=== PATIENT | female | born 1970 | race Two or more races ===

== ENCOUNTER 2019-09-15 12:29 | Inpatient (IN) | payer OTHER ==
[2019-09-15] MEDS ORDERED: morphine CARPU-JECT 4 MG/1 ML DISP.SYRIN IVPUSH ONE (12:59)
[2019-09-15] MEDS ORDERED: ONDANSETRON 4 MG/2 ML VIAL IVPUSH ONE (13:00)
[2019-09-15] MEDS ORDERED: LACTATED RINGERS SOLUTION 1000 ML INFUS.BAG IV ONE (13:00)
--- NOTE | 2019-09-15 13:01 | PDOC ---
History of Present Illness - General Chief Complaint: Pain Stated Complaint: ABD PAIN Time Seen by Provider: 09/15/19 12:31 History Source: Patient, Family (Daughter present at bedside.), Pt declined Machine Set Up Technician (Requested daughter provide interpretation) Exam Limitations: Language Barrier (Telugu speaking only) - History of Present Illness Initial Comments: HPI: 49 y/o female presenting to [place] ER complaining of atraumatic bilateral lower back, bilateral flank, and lower abdominal pain with nausea x2 days. Symptoms started last night with left lower back vs left flank pain and progressively worsened. Endorsed nausea without vomiting. Denies diarrhea, hematuria, dysuria, or increased urinary frequency. No change in pain with voiding. Last BM this morning; described as normal and nonbloody. No h/o similar pain or nephrolithiasis. Endorsed h/o ovarian cyst several years ago. Stopped menstrating in her 30s. Of note, the pt was initially evaluated at and referred to ED for further evaluation. Results scanned into [facility]. Medical Hx: - HTN Surgical Hx: - - Unknown type for ovarian cyst several years ago in the [place] Review of Systems: In addition to that documented in the HPI above, the additional ROS was obtained : Constitutional- Denies diaphoresis, fevers, or chills Head- Denies vision changes ENMT- Denies sore throat CV- Denies chest pain Resp- Denies SOB GI- Denies vomiting or diarrhea - Denies painful urination MSK- Denies recent trauma Skin- Denies new rashes Neuro- Denies new numbness or tingling or weakness Endocrine- Denies polyuria Heme- Denies bleeding or bruising Physical Examination: Vital signs and nursing notes reviewed. Constitutional- Well-developed, well-nourished adult female in no acute distress but obvious discomfort. Found in left lateral recumbent position on hospital bed. Head- Normocephalic. No obvious external signs of trauma. Cardiovascular / Chest- Regular rate and regular rhythm. No murmur, rubs, clicks , or gallops. Peripheral pulses- radial pulses full. Respiratory- Breathing unlabored. Equal chest rise and fall. Clear to auscultation bilaterally. No stridor, no wheezing, no rhonchi. Gastrointestinal- lower abdomen is diffusely tender with minimal guarding in RLQ. Positive Roseving's sign. Pain made worse by transitioning to semi-smith' s position and sitting upright. Globally, abdomen is soft and nondistended. No pulsatile masses. No overlying skin lesions or obvious signs of trauma. Midline post surgical scar below umbilicus. Neuro- Alert and oriented x4. Moving all four extremities spontaneously. Skin- Warm, dry, and intact. No bruising, rashes, or other lesions. MSK- Diffuse R and L lower back tenderness. No midline tenderness or overlying skin changes. No signs of trauma. - L CVA tenderness. Psych- Affect- appropriate. Mood- normal. Speech was non-labored, non- pressured. MDM: 49 y/o female presenting with worsening flank and lower abdominal pain w/ nausea x2 days. Afebrile. Vitals unremarkable for hypotension or tachycardia. Physical exam as described above. Ordered Morphine, Zofran, and IVFB. Concern for acute appendicitis given physical exam findings. Low suspicion for pyelonephritis given UA results. Noted hematuria, but low suspicion for nephrolithiasis given bilateral nature of pain and abdominal findings. Reviewed CTAP results. Possible early appendicitis. Will discuss with Dr. Cabrera. 15 Sep 2019 15:04 PM Pt reassessed. Reports pain has improved. Repeat abdominal exam again revealed rebound tenderness in the RLQ and referred pain from LLQ. Afebrile measured rectally. 15 Sep 2019 17:08 PM Telephone discussion with Dr. Cabrera. Verbally appraised of the pts HPI, ED course, and current plan of management. Will review the CT scan. Anticipate possible observation. Requested no further narcotic administration or abx administration. States she would be unable to perform emergent or urgent surgery at [facility]. 15 Sep 2019 17:43 PM Telephone discussion with Dr. Deluca, ED Attending at [facility]. Verbally appraised of the pts HPI, ED course, and current plan of management. Will accept the pt as an ED to ED transfer for surgical evaluation and likely admission. Discussed plan to transfer to [facility] ED for further evaluation with pt and pts daughter. Both expressed verbal understanding and agreement with plan. Pre-op labs and EKG ordered. Masoud Calvert M.D., PGY2 Emergency Medicine Resident Past History - Past Medical History Allergies/Adverse Reactions: Allergies Allergy/AdvReac Type Severity Reaction Status Date / Time No Known Allergies Allergy Verified 03/01/20 12:30 Home Medications: Ambulatory Orders Loratadine [Claritin] 10 mg PO DAILY 09/15/19 Losartan Potassium 50 mg PO DAILY 09/15/19 COPD: No HTN: Yes - Psycho Social/Smoking Cessation Hx Smoking History: Never smoked Have you smoked in the past 12 months: No Information on smoking cessation initiated: No Hx Alcohol Use: No Drug/Substance Use Hx: No *Physical Exam - Vital Signs Last Vital Signs Temp Pulse Resp BP Pulse Ox 98.5 F 68 20 139/87 99 09/15/19 12:30 09/15/19 12:30 09/15/19 12:30 09/15/19 12:30 09/15/19 12:30 ED Treatment Course - LABORATORY CBC & Chemistry Diagram: 09/15/19 13:23 09/15/19 13:14 - ADDITIONAL ORDERS Additional order review: Laboratory Results 09/15/19 12:53 Urine Color Yellow Urine Appearance Clear Urine pH 5.5 Urine Protein Negative Urine Glucose (UA) Negative Urine Ketones Negative Urine Blood 1+ H Urine Nitrite Negative Urine Bilirubin Negative Urine Urobilinogen 0.2 Ur Leukocyte Esterase Negative - RADIOLOGY Radiology Studies Ordered: Category Date Time Status ABDOMEN & PELVIS CT WITH CONTR [CT] Stat CT Scan 09/15/19 12:58 Ordered Discharge - Discharge Information Problems reviewed: Yes Clinical Impression/Diagnosis: Nausea alone Abdominal pain Qualifiers: Abdominal location: right lower quadrant Qualified Code(s): R10.31 - Right lower quadrant pain Condition: Stable Disposition: TRANSFER ACUTE CARE/OTHER HOSP - Follow up/Referral - Patient Discharge Instructions - Post Discharge Activity - Transfer to Acute Care Facility Transfer Comment: Pt transferred to [facility] for general surgical evaluation.
[2019-09-15 13:09] LABS: EPITHELIAL CELLS FEW /hpf
--- NOTE | 2019-09-15 13:09 | PDOC ---
Attending Attestation - Resident Resident Name: Masoud Calvert - ED Attending Attestation I have performed the following: I have examined & evaluated the patient, The case was reviewed & discussed with the resident, I agree w/resident's findings & plan - HPI HPI: 09/15/19 13:04 49 y/o female with left flank pain now radiating to RLQ that started yesterday. Was seen at [facility] today and has blood in urine, sent to ER for further evaluation of possible kidney stone. Denies, fever chills, dysuria fall or trauma. Has not taken anything for the pain. Pain getting worse, even with movement. No N/V/d/C. Pt states to have had this pain 2 weeks ago, but went away. 09/15/19 15:02 - Physicial Exam PE: 09/15/19 13:06 VSS stable HEENT : unremarkable Heart: RRR w/o murmur Lungs: CTA b/l, no wheezes, no CVA tenderness b/l Abdomen: soft +BS, tender to RLQ and LLQ, no RUQ or LUQ, no abdominal pulsatile masses noted, +Rovsing sign Ext: no C/C/e Neuro: grossly intact 09/15/19 15:27 - Medical Decision Making 09/15/19 13:07 49 y/o female with hematuria and RLQ, will obtain labs and CT abd/pelvis Pt is in agreement with plan IVF and pain meds 09/15/19 17:43 CT abdomen: possible early appendicitis Dr. Hsu Surgeon will see pt wants patient transferred to [facility] Dr. Deluca in ER accepted transfer Final Dx: RLQ pain cannot r/o appendicitis Further orders as per attending, wants fluids only, no antibiotics Case reviewed and discussed with Dr. Calvert
[2019-09-15] MEDS ORDERED: morphine SULFATE 4 MG/ML VIAL ONE (13:29)
[2019-09-15] MEDS ORDERED: ONDANSETRON 4 MG/2 ML VIAL ONE (13:29)
[2019-09-15 13:45] LABS: ALBUMIN 4.3 g/dl (3.4-5.0); BILIRUBIN,TOTAL 0.7 mg/dl (0.2-1); CALCIUM 9.3 mg/dl (8.5-10); CREATININE 0.7 mg/dl (0.55-1.3); POTASSIUM 4.1 mmol/L (3.5-5.1); TOT PROT 7.7 g/dl (6.4-8.2)
[2019-09-15 14:10] LABS: BASO % 0.6 % (0-2.0); HEMOGLOBIN 12.8 GM/dL (10.7-15.3); LYMPH % 47.4 % (8-40); MCHC 32.8 g/dl (32.0-36.0); MEAN CELL VOLUME 82.4 fl (80-96); MEAN PLT VOLUME 9.9 fl (7.5-11.1); MONO % 5.9 % (3.8-10.2); NEUT % 42.1 % (42.8-82.8); PLATELET COUNT 260 K/MM3 (134-434); RBC 4.73 M/mm3 (3.60-5.2); RDW 15.2 % (11.6-15.6); WHITE BLOOD COUNT 6.6 K/mm3 (4.0-10.0)
[2019-09-15] MEDS ORDERED: LACTATED RINGERS SOLUTION 1,000 ML/1,000 ML INFUS.BAG IV SCH ×2 (17:15→20:30)
[2019-09-15 18:37] LABS: INR 1.13 (0.82-1.09); PROTHROMBIN TIME (PATIENT) 12.6 SEC (10.2-13.0)
--- NOTE | 2019-09-15 19:30 | PDOC ---
*Physical Exam - Vital Signs Last Vital Signs Temp Pulse Resp BP Pulse Ox 97.4 F L 76 16 140/77 98 09/15/19 19:15 09/15/19 19:15 09/15/19 19:15 09/15/19 19:15 09/15/19 19:15 ED Treatment Course - LABORATORY CBC & Chemistry Diagram: 09/16/19 06:26 09/16/19 06:26 - ADDITIONAL ORDERS Additional order review: Laboratory Results 09/15/19 09/15/19 09/15/19 18:24 13:23 13:14 PT with INR 12.6 INR 1.13 PTT (Actin FS) 30.0 Sodium 138 Potassium 4.1 Chloride 106 Carbon Dioxide 24 Anion Gap 8 BUN 13.0 Creatinine 0.7 Est GFR (CKD-EPI)AfAm 117.91 Est GFR (CKD-EPI)NonAf 101.74 Random Glucose 93 Calcium 9.3 Total Bilirubin 0.7 AST 16 ALT 12 L Alkaline Phosphatase 55 Total Protein 7.7 Albumin 4.3 Lipase 158 Urine Color Urine Appearance Urine pH Urine Protein Urine Glucose (UA) Urine Ketones Urine Blood Urine Nitrite Urine Bilirubin Urine Urobilinogen Ur Leukocyte Esterase Urine RBC Urine WBC Ur Transition Epith Cell Urine HCG, Qual 09/15/19 09/15/19 12:53 12:53 PT with INR INR PTT (Actin FS) Sodium Potassium Chloride Carbon Dioxide Anion Gap BUN Creatinine Est GFR (CKD-EPI)AfAm Est GFR (CKD-EPI)NonAf Random Glucose Calcium Total Bilirubin AST ALT Alkaline Phosphatase Total Protein Albumin Lipase Urine Color Yellow Urine Appearance Clear Urine pH 5.5 Urine Protein Negative Urine Glucose (UA) Negative Urine Ketones Negative Urine Blood 1+ H Urine Nitrite Negative Urine Bilirubin Negative Urine Urobilinogen 0.2 Ur Leukocyte Esterase Negative Urine RBC 2-5 Urine WBC 0-2 Ur Transition Epith Cell Few Urine HCG, Qual Negative 09/15/19 13:23 RBC 4.73 MCV 82.4 MCHC 32.8 RDW 15.2 MPV 9.9 Neutrophils % 42.1 L Lymphocytes % 47.4 H Monocytes % 5.9 Eosinophils % 4.0 Basophils % 0.6 - Medications Given in the ED: ED Medications Discontinued Medications Generic Name Dose Route Start Last Admin Trade Name Freq PRN Reason Stop Dose Admin Lactated Ringer's 1,000 ml 09/15/19 13:00 09/15/19 13:36 Lactated Ringers Solution IV 09/15/19 13:01 1,000 ml ONCE ONE Administration Morphine Sulfate 4 mg 09/15/19 12:59 09/15/19 13:36 Morphine Injection - IVPUSH 09/15/19 13:00 4 mg ONCE ONE Administration Ondansetron HCl 4 mg 09/15/19 13:00 09/15/19 13:36 Zofran Injection IVPUSH 09/15/19 13:01 4 mg ONCE ONE Administration Medical Decision Making - Medical Decision Making 09/15/19 19:24 Patient transferred from [facility] for further evaluation. Patient is a 49 yo female w/ pmh of HTN who presents for evaluation of back/flank pain progr essed to abdominal pain. Evaluation already today includes CT abd/pelvis which revealed possible early appendicitis. Patient transferred for surgical evaluation. ROS: GENERAL/CONSTITUTIONAL: No fever or chills. No weakness. HEAD, EYES, EARS, NOSE AND THROAT: No change in vision. No ear pain or dis charge. No sore throat. CARDIOVASCULAR: No chest pain or shortness of breath RESPIRATORY: No cough, wheezing, or hemoptysis. GASTROINTESTINAL: +Abdominal/flank pain as reported. No nausea, vomiting, d iarrhea or constipation. GENITOURINARY: No dysuria, frequency, or change in urination. MUSCULOSKELETAL: No joint or muscle swelling or pain. No neck or back pain. SKIN: No rash NEUROLOGIC: No headache, vertigo, loss of consciousness, or change in strength/sensation. ENDOCRINE: No increased thirst. No abnormal weight change HEMATOLOGIC/LYMPHATIC: No anemia, easy bleeding, or history of blood clots. ALLERGIC/IMMUNOLOGIC: No hives or skin allergy. PE: GENERAL: Awake, alert, and fully oriented, in no acute distress HEAD: No signs of trauma, normocephalic, atraumatic EYES: PERRLA, EOMI, sclera anicteric, conjunctiva clear ENT: Auricles normal inspection, hearing grossly normal, nares patent, nata pharynx clear without exudates. Moist mucosa NECK: Normal ROM, supple, no lymphadenopathy, JVD, or masses LUNGS: No distress, speaks full sentences, clear to auscultation bilaterally HEART: Regular rate and rhythm, normal S1 and S2, no murmurs, rubs or gallops, peripheral pulses normal and equal bilaterally. ABDOMEN: +BRIANNA exquisite lower abdominal TTP. EXTREMITIES: Normal inspection, Normal range of motion, no edema. No clubbing or cyanosis. NEUROLOGICAL: Cranial nerves II through XII grossly intact. Normal speech, normal gait, no focal sensorimotor deficits SKIN: Warm, Dry, normal turgor, no rashes or lesions noted. Patient currently pending surgical evaluation. Will monitor for clinical changes and provide analgesia prn. Patient otherwise well appearing at this time. 09/15/19 20:21 Discussed patient w/ surgery who requested no ABX or narcotics to ensure ap propriate exams. Will admit for serial abdominal exams and morning repeat labs. Discharge - Discharge Information Problems reviewed: Yes Clinical Impression/Diagnosis: Abdominal pain Qualifiers: Abdominal location: right lower quadrant Qualified Code(s): R10.31 - Right lower quadrant pain Condition: Fair Disposition: HOME - Admission Yes - Follow up/Referral - Patient Discharge Instructions - Post Discharge Activity
[2019-09-15] MEDS ORDERED: DEXAMETHASONE SOD PHOSPHATE 10 MG/1 ML VIAL ONE (21:19)
[2019-09-15] MEDS ORDERED: ONDANSETRON 4 MG/2 ML VIAL IVPUSH PRN (21:49)
[2019-09-15] MEDS ORDERED: ACETAMINOPHEN 1000 MG/100 ML VIAL (NON FORMULARY) IVPB PRN (21:50)
[2019-09-15] MEDS ORDERED: ACETAMINOPHEN INJECTION 100 ML IVPB ONE (22:42)
--- NOTE | 2019-09-15 22:52 | CONSULT ---
Consult Consult Specialty:: General Surgery Referred by:: Guillaume Calvert Reason for Consultation:: possible early appendicitis - History of Present Illness Chief Complaint: R flank pain, BLQ pain L>R, also L flank pain, mild nausea History of Present Illness: 49yo Win F with HTN, s/p hysterectomy and subsequent oophorectomy ( adherent to intestines), presented to [facility] ER with R flank pain radiating around to pelvis and groin, also to left side and around to left flank, associated with some nausea but no vomiting. She had normal BM this morning, no fever or chills, though her abdomen felt "hot." The pain has been persistent and severe, greater with ambulation. She had a similar pain but not nearly as bad a week or two ago, but it went away on its own. She had beef soup and white rice for lunch yesterday, and the pain started around 6pm, and she did not have dinner. She did have tea later last night, and coffee with bread this morning. She denies h/o kidney stones, hematuria, or dysuria. At [facility] ER, she had wbc 6.6, was afebrile, labs normal, UA showed 1+ blood, 2- 5 RBC, 0-2 WBC, otherwise negative, and culture is pending. CT with IV but no PO contrast showed no acute findings except possible dilation of appendiceal tip on sagittal views. Surgery was asked to assess, and she was transferred to [facility] ER, as there would be no OR staff available at [facility] over the weekend. She is seen and examined in ER, just after ambulating to bathroom to urinate. Her daughter helped with Guyanese at bedside. She stated she feels a little better, but is still in pain, more LLQ than RLQ, but also on flanks. It hurts to walk and to turn/move on the stretcher. She related the above history. - History Source History Provided By: Patient, Family Member (daughter) Limitations to Obtaining History: Language Barrier (Guyanese - daughter assisted at pt's request) - Past Medical History Cardio/Vascular: Yes: HTN ...: No - Past Surgical History Past Surgical History: Yes: Hysterectomy, Oopherectomy (one side, secondary to intestinal adhesions/ovarian cyst) Additional Surgical History: laparotomy - thought ovarian cyst, found adhesions to intestines, took ovary (in [place] 6 yrs ago) - Alcohol/Substance Use Hx Alcohol Use: Yes (social) History of Substance Use: reports: None - Smoking History Smoking history: Former smoker Have you smoked in the past 12 months: No If you are a former smoker, when did you quit?: 16 yrs ago - Social History ADL: Independent Home Medications - Allergies Allergies/Adverse Reactions: Allergies Allergy/AdvReac Type Severity Reaction Status Date / Time No Known Allergies Allergy Verified 09/15/19 12:30 - Home Medications Home Medications: Ambulatory Orders Loratadine [Claritin] 10 mg PO DAILY 09/15/19 Losartan Potassium 50 mg PO DAILY 09/15/19 Family Medical History Family History: Unremarkable (noncontributory) Review of Systems - Review of Systems Constitutional: denies: Chills, Fever, Loss of Appetite Eyes: reports: Other (glasses for reading). denies: Recent Change in Vision HENT: denies: Difficult Swallowing, Throat Pain Neck: denies: Swollen Glands, Tenderness Cardiovascular: denies: Chest Pain, Palpitations Respiratory: denies: Cough, SOB Gastrointestinal: reports: Abdominal Pain (with hpi), Nausea (with hpi). denies : Constipation, Diarrhea, Vomiting Genitourinary: denies: Burning, Dysuria Musculoskeletal: reports: Back Pain (with hpi). denies: Joint Pain, Muscle Pain Integumentary: denies: Change in Color, Rash Neurological: denies: Dizziness, Headache Physical Exam Vital Signs: Vital Signs Temperature 97.8 F 09/15/19 20:48 Pulse Rate 61 09/15/19 22:06 Respiratory Rate 18 09/15/19 22:06 Blood Pressure 132/88 09/15/19 22:06 O2 Sat by Pulse Oximetry (%) 100 09/15/19 22:06 Constitutional: Yes: Well Nourished, Calm, Mild Distress (in pain with ambulation and moving on stretcher) Eyes: Yes: Conjunctiva Clear, EOM Intact HENT: Yes: Atraumatic, Normocephalic Neck: Yes: Supple, Trachea Midline Cardiovascular: Yes: Regular Rate and Rhythm Respiratory: Yes: Regular, CTA Bilaterally Gastrointestinal: Yes: Normal Bowel Sounds, Soft, Tenderness (LLQ >= suprapubic > RLQ; also some tenderness right lateral abd/side just above iliac crest), Other (well-healed Pfannenstiel and lower midline scars). No: Distention, Hernia, Tenderness, Epigastrium, Tenderness, Rebound ...Rectal Exam: Yes: Deferred Renal/: No: CVA Tenderness - Left, CVA Tenderness - Right Musculoskeletal: No: Joint Stiffness, Joint Swelling Extremities: No: Cool, Cyanosis Edema: No Peripheral Pulses WNL: Yes Integumentary: No: Jaundice, Rash Neurological: Yes: Alert, Oriented Psychiatric: Yes: Alert, Oriented Labs: CBC, BMP 09/15/19 13:23 09/15/19 13:14 CMP Sodium 138 mmol/L (136-145) 09/15/19 13:14 Potassium 4.1 mmol/L (3.5-5.1) 09/15/19 13:14 Chloride 106 mmol/L (98-107) 09/15/19 13:14 Carbon Dioxide 24 mmol/L (21-32) 09/15/19 13:14 Anion Gap 8 MMOL/L (8-16) 09/15/19 13:14 BUN 13.0 mg/dl (7-18) 09/15/19 13:14 Creatinine 0.7 mg/dl (0.55-1.3) 09/15/19 13:14 Est GFR (CKD-EPI)AfAm 117.91 09/15/19 13:14 Est GFR (CKD-EPI)NonAf 101.74 09/15/19 13:14 Random Glucose 93 mg/dl (74-106) 09/15/19 13:14 Calcium 9.3 mg/dl (8.5-10) 09/15/19 13:14 Total Bilirubin 0.7 mg/dl (0.2-1) 09/15/19 13:14 AST 16 U/L (15-37) 09/15/19 13:14 ALT 12 U/L (13-61) L 09/15/19 13:14 Alkaline Phosphatase 55 U/L (45-117) 09/15/19 13:14 Total Protein 7.7 g/dl (6.4-8.2) 09/15/19 13:14 Albumin 4.3 g/dl (3.4-5.0) 09/15/19 13:14 Lipase 158 U/L (73-393) 09/15/19 13:23 INR, PTT INR 1.13 (0.82-1.09) 09/15/19 18:24 Urine Test Results Urine Color Yellow 09/15/19 12:53 Urine Appearance Clear 09/15/19 12:53 Urine pH 5.5 (4.5-8) 09/15/19 12:53 Urine Protein Negative (NEGATIVE) 09/15/19 12:53 Urine Glucose (UA) Negative (NEGATIVE) 09/15/19 12:53 Urine Ketones Negative (NEGATIVE) 09/15/19 12:53 Urine Blood 1+ (NEGATIVE) H 09/15/19 12:53 Urine Nitrite Negative (NEGATIVE) 09/15/19 12:53 Urine Bilirubin Negative (NEGATIVE) 09/15/19 12:53 Ur Leukocyte Esterase Negative (NEGATIVE) 09/15/19 12:53 Urine RBC 2-5 /hpf (0-4) 09/15/19 12:53 Urine WBC 0-2 (NEGATIVE) 09/15/19 12:53 Imaging - Results Cat Scan: Report Reviewed, Image Reviewed (absent uterus, no free fluid or air, appendix without inflammatory changes but possible dilation of tip on sagittal views only, no obstruction, no oral contrast given, + multiple punctate hyperdensities in pelvis and near bladder - ? stones vs phleboliths?) Problem List - Problems (1) Abdominal pain, bilateral lower quadrant Code(s): R10.31 - RIGHT LOWER QUADRANT PAIN; R10.32 - LEFT LOWER QUADRANT PAIN (2) Nausea alone Code(s): R11.0 - NAUSEA (3) LLQ abdominal tenderness Code(s): R10.814 - LEFT LOWER QUADRANT ABDOMINAL TENDERNESS Qualifiers: Presence of rebound: absent Qualified Code(s): R10.814 - Left lower quadrant abdominal tenderness (4) Hypertension Code(s): I10 - ESSENTIAL (PRIMARY) HYPERTENSION Qualifiers: Hypertension type: essential hypertension Qualified Code(s): I10 - Essential (primary) hypertension Assessment/Plan patient initially with right flank pain radiating toward pelvis/groin and across to left side now with mostly LLQ pain/tenderness, also suprapubic tenderness appendicitis unlikely, but source of pain unclear admitted to medicine for now NO narcotics NO antibiotics serial exams trend labs in am IV tylenol ok, home BP med with sips water ok in am NPO/IVF GI/DVT prophylaxis will f/u in am seen and discussed with Kimberlee Reyes DREDGE OPERATOR
--- NOTE | 2019-09-16 00:04 | HP ---
Admitting History and Physical - Primary Care Physician PCP: Hanna Martins - Admission Chief Complaint: Abdominal/Pelvic Pain, Flank Pain, Nausea History of Present Illness: This is a 49 y/o female with a PMHx of HTN, Ovarian Cyst. Who presents to the ED from [facility] with bilateral flank and generalized abdominal pain with nausea x 2 days. Patient is [place] Citizen speaking requests her daughter translate on her behalf, declined [employer] language line services. Per the daughter, the pain to the abdomen and bilateral flanks began after the patient lifted a 40" TV, while organizing her room. The patient describes the pain as "sharp, squeezing" and constant, radiating from lower abdomen LLQ > RLQ to bilateral flanks, worse with movement. Patient reports eating food earlier in the day without incident. Last BM was today brown-soft. Patient reports having malodorous urine x 1 week, without dysuria. Patient denies vaginal discharge or being sexually active. Per the daughter, the patient had a Hysterectomy with oophrectomy. Patient denies fever, chills, cough, dizziness, ZHU, vomiting, constipation. History Source: Patient, Family Member Limitations to Obtaining History: Language Barrier (Spain[place] speaking) - Past Medical History Cardiovascular: Yes: HTN Reproductive: Yes: Postmenopausal ...LMP Comment: age 32 ...: No - Past Surgical History Past Surgical History: Yes: , Hysterectomy, Oopherectomy (one side, secondary to intestinal adhesions/ovarian cyst) - Smoking History Smoking history: Former smoker Have you smoked in the past 12 months: No If you are a former smoker, when did you quit?: 16 yrs ago - Alcohol/Substance Use Hx Alcohol Use: Yes (social) History of Substance Use: reports: None - Social History Usual Living Arrangement: Yes: With Child ADL: Independent 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 History of Recent Travel: No Home Medications - Allergies Allergies/Adverse Reactions: Allergies Allergy/AdvReac Type Severity Reaction Status Date / Time No Known Allergies Allergy Verified 09/15/19 12:30 - Home Medications Home Medications: Ambulatory Orders Loratadine [Claritin] 10 mg PO DAILY 09/15/19 Losartan Potassium 50 mg PO DAILY 09/15/19 Family Medical History Family History: Unremarkable Review of Systems - Review of Systems Constitutional: reports: No Symptoms Eyes: reports: No Symptoms HENT: reports: No Symptoms Neck: reports: No Symptoms Cardiovascular: reports: No Symptoms Respiratory: reports: No Symptoms Gastrointestinal: reports: Abdominal Pain, Nausea Genitourinary: reports: Flank Pain, Other (Malodorous Urine) Breasts: reports: No Symptoms Reported Musculoskeletal: reports: Back Pain Integumentary: reports: No Symptoms Neurological: reports: No Symptoms Endocrine: reports: No Symptoms Hematology/Lymphatic: reports: No Symptoms Psychiatric: reports: No Symptoms Pain Intensity: 9 Physical Examination Vital Signs: Vital Signs Temperature 97.8 F 09/15/19 20:48 Pulse Rate 61 09/15/19 22:06 Respiratory Rate 18 09/15/19 22:06 Blood Pressure 132/88 09/15/19 22:06 O2 Sat by Pulse Oximetry (%) 100 09/15/19 22:06 Constitutional: Yes: Moderate Distress Eyes: Yes: WNL, Conjunctiva Clear, EOM Intact, PERRL HENT: Yes: WNL, Atraumatic, Normocephalic Neck: Yes: WNL, Supple, Trachea Midline Cardiovascular: Yes: Regular Rate and Rhythm, S1, S2 Respiratory: Yes: WNL, Regular, CTA Bilaterally Gastrointestinal: Yes: Normal Bowel Sounds, Soft, Tenderness (LUQ, LMQ, LLQ) ...Rectal Exam: Yes: WNL Renal/: Yes: CVA Tenderness - Right, Other ( Bi Manual exam-tenderness to lower abdomen). No: Vaginal Discharge Breast(s): Yes: WNL Musculoskeletal: Yes: Back Pain Extremities: Yes: WNL Edema: No Peripheral Pulses WNL: Yes Integumentary: Yes: WNL, Incision Wound/Incision: Yes: Other (surgical scar well healed- midline) Neurological: Yes: WNL, Alert, Oriented, Cran Nerves II-XII Intact ...Motor Strength: WNL Psychiatric: Yes: WNL, Alert, Oriented Labs: CBC, BMP 09/15/19 13:23 09/15/19 13:14 Laboratory Results - last 24 hr 09/15/19 09/15/19 09/15/19 12:53 12:53 13:14 WBC RBC Hgb Hct MCV MCH MCHC RDW Plt Count MPV Absolute Neuts (auto) Neutrophils % Lymphocytes % Monocytes % Eosinophils % Basophils % Nucleated RBC % PT with INR INR PTT (Actin FS) Sodium 138 Potassium 4.1 Chloride 106 Carbon Dioxide 24 Anion Gap 8 BUN 13.0 Creatinine 0.7 Est GFR (CKD-EPI)AfAm 117.91 Est GFR (CKD-EPI)NonAf 101.74 Random Glucose 93 Calcium 9.3 Total Bilirubin 0.7 AST 16 ALT 12 L Alkaline Phosphatase 55 Total Protein 7.7 Albumin 4.3 Lipase Urine Color Yellow Urine Appearance Clear Urine pH 5.5 Urine Protein Negative Urine Glucose (UA) Negative Urine Ketones Negative Urine Blood 1+ H Urine Nitrite Negative Urine Bilirubin Negative Urine Urobilinogen 0.2 Ur Leukocyte Esterase Negative Urine RBC 2-5 Urine WBC 0-2 Ur Transition Epith Cell Few Urine HCG, Qual Negative Blood Type Antibody Screen 09/15/19 09/15/19 09/15/19 13:23 13:23 18:24 WBC 6.6 RBC 4.73 Hgb 12.8 Hct 39.0 MCV 82.4 MCH 27.0 MCHC 32.8 RDW 15.2 Plt Count 260 MPV 9.9 Absolute Neuts (auto) 2.8 Neutrophils % 42.1 L Lymphocytes % 47.4 H Monocytes % 5.9 Eosinophils % 4.0 Basophils % 0.6 Nucleated RBC % 0 PT with INR 12.6 INR 1.13 PTT (Actin FS) 30.0 Sodium Potassium Chloride Carbon Dioxide Anion Gap BUN Creatinine Est GFR (CKD-EPI)AfAm Est GFR (CKD-EPI)NonAf Random Glucose Calcium Total Bilirubin AST ALT Alkaline Phosphatase Total Protein Albumin Lipase 158 Urine Color Urine Appearance Urine pH Urine Protein Urine Glucose (UA) Urine Ketones Urine Blood Urine Nitrite Urine Bilirubin Urine Urobilinogen Ur Leukocyte Esterase Urine RBC Urine WBC Ur Transition Epith Cell Urine HCG, Qual Blood Type Antibody Screen 09/15/19 09/15/19 18:27 18:29 WBC RBC Hgb Hct MCV MCH MCHC RDW Plt Count MPV Absolute Neuts (auto) Neutrophils % Lymphocytes % Monocytes % Eosinophils % Basophils % Nucleated RBC % PT with INR INR PTT (Actin FS) Sodium Potassium Chloride Carbon Dioxide Anion Gap BUN Creatinine Est GFR (CKD-EPI)AfAm Est GFR (CKD-EPI)NonAf Random Glucose Calcium Total Bilirubin AST ALT Alkaline Phosphatase Total Protein Albumin Lipase Urine Color Urine Appearance Urine pH Urine Protein Urine Glucose (UA) Urine Ketones Urine Blood Urine Nitrite Urine Bilirubin Urine Urobilinogen Ur Leukocyte Esterase Urine RBC Urine WBC Ur Transition Epith Cell Urine HCG, Qual Blood Type O POSITIVE O POSITIVE Antibody Screen Negative Intake & Output 09/13/19 09/14/19 09/15/19 09/16/19 23:59 23:59 23:59 23:59 Intake Total 3075 Balance 3075 Weight 70.715 kg Current Medications Generic Name Dose Route Start Last Admin Trade Name Freq PRN Reason Stop Dose Admin Acetaminophen 1,000 mg 09/15/19 21:50 09/15/19 22:41 Ofirmev Injection - IVPB 09/16/19 21:50 1,000 mg Q6H PRN Administration PAIN LEVEL 6-10 Dextrose/Sodium Chloride 1,000 mls @ 83 mls/hr 09/16/19 02:00 09/16/19 02:38 D5-1/2ns - IV 83 mls/hr ASDIR DAI Administration Ondansetron HCl 4 mg 09/15/19 21:49 Zofran Injection IVPUSH Q6H PRN NAUSEA AND/OR VOMITING Imaging - Results Cat Scan: Report Reviewed, Image Reviewed EKG: Image Reviewed Problem List - Problems (1) Abdominal pain Assessment/Plan: Likely secondary to UTI, less likely Appendicitis CTAP- reviewed No leukocytosis, no neutrophilia UA- +1 blood, neg leukocyte esterase Urine culture pending Surgical Consult appreciated Continue IVF NPO Ofirmev prn Serial Abdominal Exams Code(s): R10.9 - UNSPECIFIED ABDOMINAL PAIN Qualifiers: Abdominal location: right lower quadrant Qualified Code(s): R10.31 - Right lower quadrant pain (2) LLQ abdominal tenderness Code(s): R10.814 - LEFT LOWER QUADRANT ABDOMINAL TENDERNESS Qualifiers: Presence of rebound: absent Qualified Code(s): R10.814 - Left lower quadrant abdominal tenderness (3) Flank pain Assessment/Plan: Appreciate Urology consult Monitor CBC, BMP Monitor vitals Continue IVF Ofirmev prn Code(s): R10.9 - UNSPECIFIED ABDOMINAL PAIN (4) Hypertension Assessment/Plan: stable Monitor BP Continue home med Monitor renal functions Code(s): I10 - ESSENTIAL (PRIMARY) HYPERTENSION Qualifiers: Hypertension type: essential hypertension Qualified Code(s): I10 - Essential (primary) hypertension Assessment/Plan This is a 49 y/o woman with a PMHx of HTN, Ovarian Cyst. admitted to [facility] for Intractable Abdominal, Flank Pain for further evaluation of their emergent condition. Plan: See Problem List FEN D51/2NS@83ml/hr Replete lytes prn NPO DVT ppx OOB SCDs Heparin SQ Code Status: Full Code Dispo: Requires Inpatient Care Visit type - Emergency Visit Emergency Visit: Yes ED Registration Date: 09/15/19 Care time: The patient presented to the Emergency Department on the above date and was hospitalized for further evaluation of their emergent condition. - New Patient This patient is new to me today: Yes Date on this admission: 09/15/19 - Critical Care Critical Care patient: No
[2019-09-16 00:08] VITALS: BMI 25.1
[2019-09-16] MEDS ORDERED: DEXTROSE 5%-0.45% SALINE 1,000 ML IV SCH (02:00)
[2019-09-16 07:10] LABS: BASO % 0.5 % (0-2.0); EOS % 5.2 % (0-4.5); HEMOGLOBIN 11.7 GM/dL (10.7-15.3); LYMPH % 45.6 % (8-40); MCH 27.1 pg (25.7-33.7); MCHC 32.5 g/dl (32.0-36.0); MEAN CELL VOLUME 83.4 fl (80-96); MEAN PLT VOLUME 10.2 fl (7.5-11.1); MONO % 7.2 % (3.8-10.2); NEUT % 41.5 % (42.8-82.8); PLATELET COUNT 232 K/MM3 (134-434); RBC 4.31 M/mm3 (3.60-5.2); RDW 15.2 % (11.6-15.6); WHITE BLOOD COUNT 5.9 K/mm3 (4.0-10.0)
[2019-09-16 07:35] LABS: ALBUMIN 3.4 g/dl (3.4-5.0); BILIRUBIN,TOTAL 0.6 mg/dL (0.2-1); BLOOD UREA NITROGEN 7.4 mg/dL (7-18); CALCIUM 8.4 mg/dL (8.5-10.1); CREATININE 0.7 mg/dL (0.55-1.3); POTASSIUM 3.9 mmol/L (3.5-5.1); TOT PROT 6.6 g/dl (6.4-8.2)
--- NOTE | 2019-09-16 09:29 | EKG ---
Test Reason : Blood Pressure : / mmHG Vent. Rate : 062 BPM Atrial Rate : 062 BPM P-R Int : 152 ms QRS Dur : 082 ms QT Int : 462 ms P-R-T Axes : 030 008 024 degrees QTc Int : 468 ms NORMAL SINUS RHYTHM MINIMAL VOLTAGE CRITERIA FOR LVH, MAY BE NORMAL VARIANT BORDERLINE ECG NO PREVIOUS ECGS AVAILABLE Confirmed by Taty Bettencourt ([id number]) on 09/16/2019 9:29:28 AM Referred By: MANJEET GUSMAN Confirmed By:Taty Bettencourt
[2019-09-16] MEDS ORDERED: PT OWN MED DRAWER 7, Y5N ONE (09:34)
--- NOTE | 2019-09-16 09:44 | PN ---
Progress Note (short form) - Note Progress Note: CBC, BMP 09/16/19 06:26 09/16/19 06:26 Vital Signs Period Temp Pulse Resp BP Sys/Saunders Pulse Ox Last 24 Hr 97.4 F-98.5 F 54-76 16-20 109-140/66-90 98-100 s1s2 rrr lungs cta abd soft +bs mild lower abdominal tenderness, no rebound, no guarding [id number] 49 yo lady without significant past medical histyory admitted for abd pain ct reading reviewed spoken to pt via fruit express agent feels much better advance diet slowly as tolerated surgical consult appreciated dc planing this pm or within 24 hrs if continues to improve will get outpt gi f/up for possible colonoscopy
[2019-09-16] MEDS ORDERED: LOSARTAN POTASSIUM 50 MG TABLET (FP) PO SCH (10:00)
--- NOTE | 2019-09-16 11:34 | CON.GU ---
Consult Consult Specialty:: Referred by:: Deborah Reason for Consultation:: flank pain - History of Present Illness Chief Complaint: bilat flank and abd pain History of Present Illness: 49 y/o female with a PMHx of HTN, Ovarian Cyst. Who presents to the ED from [place] [facility] with bilateral flank and generalized abdominal pain with nausea x 2 days. Patient is [place] speaking requests her daughter translate on her behalf, declined [employer] language line services. Per the daughter, the pain to the abdomen and bilateral flanks began after the patient lifted a 40" TV, while organizing her room. The patient describes the pain as "sharp, squeezing" and constant, radiating from lower abdomen LLQ > RLQ to bilateral flanks, worse with movement. Patient reports eating food earlier in the day without incident. Last BM was today brown-soft. Patient reports having malodorous urine x 1 week, without dysuria. Patient denies vaginal discharge or being sexually active. Per the daughter, the patient had a Hysterectomy with oophrectomy. Patient denies fever, chills, cough, dizziness, ZHU, vomiting, constipation. cons req. - History Source History Provided By: Patient, Medical Record - Past Medical History Cardio/Vascular: Yes: HTN ...LMP Comment: age 32 ...: No - Past Surgical History Past Surgical History: Yes: , Hysterectomy, Oopherectomy (one side, secondary to intestinal adhesions/ovarian cyst) Additional Surgical History: laparotomy - thought ovarian cyst, found adhesions to intestines, took ovary (in [place] 6 yrs ago) - Alcohol/Substance Use Hx Alcohol Use: Yes (social) History of Substance Use: reports: None - Smoking History Smoking history: Former smoker Have you smoked in the past 12 months: No If you are a former smoker, when did you quit?: 16 yrs ago - Social History ADL: Independent 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 denies: Dysuria Physical Exam- Vital Signs: Vital Signs Temperature 98.4 F 09/16/19 07:55 Pulse Rate 51 L 09/16/19 07:55 Respiratory Rate 20 09/16/19 07:55 Blood Pressure 135/86 09/16/19 07:55 O2 Sat by Pulse Oximetry (%) 99 09/15/19 23:22 Gastrointestinal: Yes: WNL, Tenderness (SP) Renal/: No: CVA Tenderness - Left, CVA Tenderness - Right External Genitalia: Yes: WNL Labs: CBC, BMP 09/16/19 06:26 09/16/19 06:26 Imaging - Results Cat Scan: Report Reviewed, Image Reviewed Problem List - Problems (1) Abdominal pain Code(s): R10.9 - UNSPECIFIED ABDOMINAL PAIN Qualifiers: Abdominal location: right lower quadrant Qualified Code(s): R10.31 - Right lower quadrant pain (2) Flank pain Assessment/Plan: ? passed calculus, repeat u/a, consider CT pelvis w/o iv contrast to r/o ureteral calculi vs phlebolith, f/u in my office after disch for 24 hr urine Code(s): R10.9 - UNSPECIFIED ABDOMINAL PAIN
--- NOTE | 2019-09-16 14:20 | PN ---
Progress Note, Physician History of Present Illness: Pt with lower abdominal pain, L>R. Seen and examined in bed with family present. Pt reports feeling better, still some tenderness/pain LLQ/suprapubic, but less. Voiding but no BM yet. Urology consult noted. Urine cx growing 20-30K GNB. WBC still normal. - Current Medication List Current Medications: Active Medications Acetaminophen (Ofirmev Injection -) 1,000 mg IVPB Q6H PRN PRN Reason: PAIN LEVEL 6-10 Stop: 09/16/19 21:50 Last Admin: 09/15/19 22:41 Dose: 1,000 mg Dextrose/Sodium Chloride (D5-1/2ns -) 1,000 mls @ 83 mls/hr IV ASDIR DAI Last Admin: 09/16/19 02:38 Dose: 83 mls/hr Losartan Potassium (Cozaar -) 50 mg PO DAILY [facility] Last Admin: 09/16/19 09:37 Dose: 50 mg Ondansetron HCl (Zofran Injection) 4 mg IVPUSH Q6H PRN PRN Reason: NAUSEA AND/OR VOMITING - Objective Vital Signs: Vital Signs Temperature 98.4 F 09/16/19 07:55 Pulse Rate 51 L 09/16/19 07:55 Respiratory Rate 20 09/16/19 07:55 Blood Pressure 135/86 09/16/19 07:55 O2 Sat by Pulse Oximetry (%) 99 09/15/19 23:22 Constitutional: Yes: Well Nourished, No Distress, Calm Eyes: Yes: Conjunctiva Clear, EOM Intact HENT: Yes: Atraumatic, Normocephalic Gastrointestinal: Yes: Soft, Tenderness (LLQ, suprapubic but less than yesterday - mild, no guarding or rebound). No: Distention Genitourinary: No: CVA Tenderness - Left, CVA Tenderness - Right Extremities: No: Cool, Cyanosis Integumentary: No: Jaundice, Rash Neurological: Yes: Alert, Oriented Labs: CBC, BMP 09/16/19 06:26 09/16/19 06:26 CMP Sodium 144 mmol/L (136-145) 09/16/19 06:26 Potassium 3.9 mmol/L (3.5-5.1) 09/16/19 06:26 Chloride 110 mmol/L (98-107) H 09/16/19 06:26 Carbon Dioxide 29 mmol/L (21-32) 09/16/19 06:26 Anion Gap 5 MMOL/L (8-16) L 09/16/19 06:26 BUN 7.4 mg/dL (7-18) 09/16/19 06:26 Creatinine 0.7 mg/dL (0.55-1.3) 09/16/19 06:26 Est GFR (CKD-EPI)AfAm 117.91 09/16/19 06:26 Est GFR (CKD-EPI)NonAf 101.74 09/16/19 06:26 Random Glucose 95 mg/dL (74-106) 09/16/19 06:26 Calcium 8.4 mg/dL (8.5-10.1) L 09/16/19 06:26 Total Bilirubin 0.6 mg/dL (0.2-1) 09/16/19 06:26 AST 13 U/L (15-37) L 09/16/19 06:26 ALT 16 U/L (13-61) 09/16/19 06:26 Alkaline Phosphatase 59 U/L (45-117) 09/16/19 06:26 Total Protein 6.6 g/dl (6.4-8.2) 09/16/19 06:26 Albumin 3.4 g/dl (3.4-5.0) 09/16/19 06:26 Lipase 158 U/L (73-393) 09/15/19 13:23 Microbiology 09/15/19 12:53 Urine Culture - Preliminary Urine - Urine Clean Catch Lactose Fermenting Neg Bacilli Problem List - Problems (1) Abdominal pain, bilateral lower quadrant Code(s): R10.31 - RIGHT LOWER QUADRANT PAIN; R10.32 - LEFT LOWER QUADRANT PAIN (2) Nausea alone Code(s): R11.0 - NAUSEA (3) LLQ abdominal tenderness Code(s): R10.814 - LEFT LOWER QUADRANT ABDOMINAL TENDERNESS Qualifiers: Presence of rebound: absent Qualified Code(s): R10.814 - Left lower quadrant abdominal tenderness (4) Hypertension Code(s): I10 - ESSENTIAL (PRIMARY) HYPERTENSION Qualifiers: Hypertension type: essential hypertension Qualified Code(s): I10 - Essential (primary) hypertension Assessment/Plan patient initially with flank pain radiating toward pelvis/groin, LLQ>R CT with questionably dilated appendiceal tip feeling better, pain and tenderness much less today urine culture growing <10K LF GNB not consistent with appendicitis source of pain not completely clear, but not surgical will defer to medical team and other consultants ok for diet as tolerated will sign off discussed with Dr. Milian
[2019-09-16] MEDS ORDERED: ACETAMINOPHEN 325 MG TABLET (FP) PO PRN (14:21)
[2019-09-16 17:24] VITALS: BP 137/79; PULSE 60; TEMP 97.8
--- NOTE | 2019-09-17 20:50 | DS ---
Physical Examination Vital Signs: Vital Signs Temperature 97.8 F 09/16/19 16:15 Pulse Rate 60 09/16/19 16:15 Respiratory Rate 20 09/16/19 16:15 Blood Pressure 137/79 09/16/19 16:15 O2 Sat by Pulse Oximetry (%) 99 09/15/19 23:22 Constitutional: Yes: No Distress, Calm Eyes: Yes: EOM Intact HENT: Yes: Normocephalic Neck: Yes: Trachea Midline Cardiovascular: Yes: Regular Rate and Rhythm Respiratory: Yes: CTA Bilaterally Gastrointestinal: Yes: Normal Bowel Sounds, Soft Peripheral Pulses WNL: No Labs: CBC, BMP 09/16/19 06:26 09/16/19 06:26 Discharge Summary Problems reviewed: Yes Reason For Visit: ABD PAIN Hospital Course: 49 yo lady without significant past medical history admitted for abd pain ct reading reviewed, mildly distended appendiceal tip, otherwise unremarkable spoken to pt via log hooker feels much better advanced diet and was tolerated surgical consult appreciated will get outpt gi f/up for possible colonoscopy and f/up Condition: Fair - Instructions Referrals: Hanna Martins MD [Primary Care Provider] - Disposition: HOME - Home Medications Comprehensive Discharge Medication List: Ambulatory Orders Loratadine [Claritin] 10 mg PO DAILY 09/15/19 Losartan Potassium 50 mg PO DAILY 09/15/19
== END 2019-09-16 18:23 | disposition home or self-care (01) | DRG 251 ==
LOC: FER 12:29 → JER 12:29 → SUPCPDRO 12:29 → JERBED 20:31 → J8W 09-16 00:15
PROVIDERS: ATTEND Internal Medicine
DX: R10.31 Right lower quadrant pain (principal); I10 Essential (primary) hypertension; N83.209 Unspecified ovarian cyst, unspecified side; R11.0 Nausea; R10.32 Left lower quadrant pain
CPT/HCPCS: 36415; 74177-TC; 80053; 81003; 81015; 83690; 84703; 85025; 85610; 85730; 86850; 86900; 86901; 87086; 87186; 93005; 99285-25; J0131; Q9967